=== PATIENT | female | born 1980 | race Caucasian/White ===

== ENCOUNTER 2017-01-15 | Emergency (ER) | payer MEDICAID ==
[~2017-01-15] VITALS: Ht 170.2 cm; Wt 75.0 kg
[2017-01-15 00:04] VITALS: Ht 170.2 cm; Wt 75.0 kg
[2017-01-15 01:44] LABS: BASOPHIL # 0.1 10^3/ul (0.0-0.1); BASOPHILS % 1.4 % (0.0-2.0); EOSINOPHILS # 0.3 10^3/ul (0.0-0.5); EOSINOPHILS % 6.4 % (0.0-7.0); HEMATOCRIT 35.2 % (37.0-47.0); HEMOGLOBIN 11.7 g/dl (12.0-16.0); LYMPHOCYTES # 2.5 10^3/ul (0.8-2.9); LYMPHOCYTES % 56.3 % (15.0-51.0); MEAN CORPUSCULAR HEMOGLOBIN 27.4 pg (29.0-33.0); MEAN CORPUSCULAR HGB CONC 33.2 g/dl (32.0-37.0); MEAN CORPUSCULAR VOLUME 82.4 fl (82.0-101.0); MEAN PLATELET VOLUME 10.8 fl (7.4-10.4); MONOCYTE # 0.4 10^3/ul (0.3-0.9); MONOCYTES % 9.9 % (0.0-11.0); NEUTROPHIL # 1.1 10^3/ul (1.6-7.5); NEUTROPHILS % 25.8 % (39.0-77.0); PLATELET COUNT 235 10^3/UL (140-415); RED BLOOD COUNT 4.27 10^6/ul (4.20-5.40); WHITE BLOOD COUNT 4.4 10^3/ul (4.8-10.8)
--- NOTE | 2017-01-15 01:46 | RADRPT ---
PROCEDURE: Portable chest x-ray. CLINICAL INDICATION: Chest pain. TECHNIQUE: Portable AP view of the chest. COMPARISON: None. FINDINGS: No pulmonary edema or conolidation is identified. The cardiac silhouette is magnified. No pleural effusion is seen. There is no pneumothorax. IMPRESSION: 1. No evidence of acute cardiopulmonary disease. RPTAT: HTAR .Marcos Marie MD, MD Date Time Electronically viewed and signed by .Marcos Marie MD, on 01/15/2017 01:46 .R/
[2017-01-15 01:48] LABS: INR 0.85; PARTIAL THROMBOPLASTIN TIME 25.6 Sec (25.0-35.0); PROTIME 11.6 Sec (12.2-14.2); PT RATIO 0.9
[2017-01-15] MEDS ORDERED: VITA100093 PO (01:52)
[2017-01-15] MEDS ORDERED: IBUP100T46 PO (01:52)
[2017-01-15 02:55] LABS: ALANINE AMINOTRANSFERASE 24 IU/L (13-69); ALBUMIN/GLOBULIN RATIO 1.25; ALKALINE PHOSPHATASE 49 IU/L (42-121); ANION GAP 17 (8-16); ASPARTATE AMINO TRANSFERASE 16 IU/L (15-46); BILIRUBIN,INDIRECT 0.1 mg/dl (0-1.1); BILIRUBIN,TOTAL 0.1 mg/dl (0.2-1.3); BLOOD UREA NITROGEN 14 mg/dl (7-20); CALCIUM 9.6 mg/dl (8.4-10.2); CARBON DIOXIDE 28 mmol/L (21-31); CHLORIDE 100 mmol/L (97-110); CREATININE 0.86 mg/dl (0.44-1.00); GLUCOSE 97 mg/dl (70-220); POTASSIUM 4.4 mmol/L (3.5-5.1); SODIUM 141 mmol/L (135-144); TOTAL PROTEIN 7.2 g/dl (6.1-8.1)
[2017-01-15 03:03] LABS: B-TYPE NATRIURETIC PEPTIDE 27 PG/ML (0-125)
[2017-01-15 03:12] LABS: TROPONIN-I < 0.012 ng/ml (0.00-0.12)
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
[2017-01-15] MEDS ORDERED: LORA1TAB PO (03:32)
[2017-01-15 03:55] VITALS: BP 116/80; PULSE 73; RESP 13
[2017-01-16] MEDS ORDERED: LORAZEPAM 1 MG TAB ONE (18:01)
== END 2017-01-15 03:57 | disposition home or self-care (01) ==
LOC: E/R
DX: R07.9 Chest pain, unspecified (principal); R40.2142 Coma scale, eyes open, spontaneous, at arrival to emergency department; R40.2252 Coma scale, best verbal response, oriented, at arrival to emergency department; R40.2362 Coma scale, best motor response, obeys commands, at arrival to emergency department
CPT/HCPCS: 36415; 71010; 80053; 83880; 84484; 85025; 85610; 85730; 93005; Z7502

== ENCOUNTER 2018-12-04 12:35 | Inpatient (IN) | payer OTHER ==
[~2018-12-04] VITALS: Ht 170.2 cm; Wt 85.0 kg
[~2018-12-04 12:35] MED LIST: IBUP100T3 PO; LORA1TAB PO; VITA100022 PO
[2018-12-04] MEDS ORDERED: CEFAZOLIN 2 GM/50 ML (PMX) 50 ML IVPB SCH (13:30)
[2018-12-04] MEDS ORDERED: OXYTOCIN 30 UNITS/LR 500 ML IV SCH (13:30)
[2018-12-04] MEDS ORDERED: OXYTOCIN 30 UNITS/LR 500 ML IV PRN ×2 (13:30→21:00)
[2018-12-04] MEDS ORDERED: CARBOPROST 250 MCG INJ IM PRN ×2 (13:30→21:00)
[2018-12-04] MEDS ORDERED: METHYLERGONOVINE 0.2 MG INJ IM PRN ×2 (13:30→21:00)
[2018-12-04] MEDS ORDERED: MISOPROSTOL 200 MCG TAB PR PRN ×2 (13:30→21:00)
[2018-12-04] MEDS: LACTATED RINGER'S 1,000 ML IV SCH ×4 (13:50→20:34)
[2018-12-04 13:51] VITALS: BP 119/77; PULSE 118; RESP 18
--- NOTE | 2018-12-04 15:21 | PREAC ---
Date/Time of Note Date/Time of Note DATE: 12/04/18 TIME: 15:20 Anesthesia Eval and Record Evaluation Time Pre-Procedure Interview DATE: 12/04/18 TIME: 15:20 Age 38 Sex female NPO: 8 hrs Preoperative diagnosis s/p Myomectomy, Primary Planned procedure Past Medical History Past Medical History: Includes Heme: Anemia : : (4), Para: (2), Gestational age: (38) Surgery & Anesthesia Issues No known issue Meds Anticoagulation: No Beta Dale within 24 hr: No Reason Beta Dale not given: Pt. not on B-Dale Active Scripts Lorazepam* (Lorazepam*) 1 Mg Tablet, 1 MG PO Q8, #10 TAB Prov:REBEL SOTELO 01/15/17 Reported Medications Ibuprofen* (Ibuprofen*) 100 Mg Tab.chew, 200 MG PO Q6 PRN for PAIN, TAB.CHEW 01/15/17 Vitamin E Acetate (Vitamin E) 1,000 Unit Capsule, 1000 UNIT PO, CAP 01/15/17 Current Medications Lactated Ringer's 1,000 ml @ 125 mls/hr Q8H IV Last administered on 12/04/18at 15:18; Admin Dose 125 MLS/HR; Start 12/04/18 at 13:20 Cefazolin Sodium/ Dextrose 50 ml @ 100 mls/hr ONCE IVPB ; Start 12/04/18 at 13:30 Oxytocin/Lactated Ringer's 500 ml @ 125 mls/hr POST IV ; Start 12/04/18 at 13:30 Oxytocin/Lactated Ringer's 500 ml @ 0 mls/hr ONCE PRN IV .VAGINAL BLEEDING; Start 12/04/18 at 13:30 Methylergonovine Maleate (Methergine) 0.2 mg ONCE PRN IM .VAGINAL BLEEDING; Start 12/04/18 at 13:30 Carboprost Tromethamine (Hemabate) 250 mcg ONCE PRN IM .VAGINAL BLEEDING; Start 12/04/18 at 13:30 Misoprostol (Cytotec) 1,000 mcg ONCE PRN AR .VAGINAL BLEEDING; Start 12/04/18 at 13:30 Meds reviewed: Yes Allergies Coded Allergies: No Known Drug Allergies (Verified Allergy, Unknown, 12/04/18) Allergies Reviewed: Yes Labs/Studies Labs Reviewed: Reviewed by anesthesiologist Result Diagram: 12/04/18 1320 Laboratory Tests 12/04/18 13:20 Blood Bank Test 12/04/18 13:20 Antibody Screen NEGATIVE Blood Type B POSITIVE Rh Immune Globulin Candidate NO test: Positive Studies: ECG (n/a), CXR (n/a) Pre-procedure Exam Last vitals Vital Signs Date Temp Pulse Resp B/P (MAP) Pulse Ox O2 O2 Flow FiO2 Time Delivery Rate 12/04/18 95.3 118 18 119/77 Room Air 13:51 (91) Airway: Adequate mouth opening, Adequate thyromental dist Mallampati: Mallampati II Teeth: Normal Lung: Normal Heart: Normal ASA Physical Status ASA physical status: 2 Emergency: None Planned Anesthetic Neuraxial: Spinal Planned Pain Management Sub-arachniod narcotics, Parenteral pain med Pre-operative Attestations Prior to commencing anesthesia and surgery, the patient was re-evaluated, there was verification of: *The patient's identity *The results of appropriate recent lab work and preoperative vital signs *The above evaluation not changing prior to induction *Anesthetic plan, risk benefits, alternative and complications discussed with patient/family; questions answered; patient/family understands, accepts and wishes to proceed. TEMO BERNABE MD Dec 04, 2018 15:21
[2018-12-04] MEDS ORDERED: CITRIC ACID/NA CITRATE 30 ML CUP PO ONE (15:30)
[2018-12-04] MEDS ORDERED: ONDANSETRON 4 MG INJ IV ONE (15:30)
[2018-12-04] MEDS ORDERED: PHENYLephrine (100 MCG/ML) 10ML SYG ONE (17:18)
--- NOTE | 2018-12-04 17:18 | HP ---
Date/Time of Note Date/Time of Note DATE: 12/04/18 TIME: 17:16 OB - History Hx of Present Free Text/Dictation . scheduled c/s for hx of myomectomy Care: Good Care Ultrasounds: Normal mid trimester US Obstetrical Complications: None Medical Complications: None Past Family/Social History * Past Medical, Surgical, Family and Obstetric Histories reviewed from chart. OB Admission Exam Vital Signs Vital Signs Vital Signs Date Temp Pulse Resp B/P (MAP) Pulse Ox O2 O2 Flow FiO2 Time Delivery Rate 12/04/18 95.3 118 18 119/77 Room Air 13:51 (91) Physical Exam HEENT: WNL Heart: Rhythm Normal Lungs: Clear, Equal Abdomen: WNL Extremities: Normal Reflexes: Normal Cervical Dilatation: None Effacement: 0% Station: Ballotable Membranes: Intact Accelerations: Accelerations Present Decelerations: No Decelerations Contractions on Admission: None Intensity: Mild Last 72 hours Lab Results CBC & BMP 12/04/18 13:20 OB Assessment/Plan Reason for admission: section Plan: Section (for hx of myomectomy) KWESI WINSTON MD Dec 04, 2018 17:18
[2018-12-04] MEDS ORDERED: OXYTOCIN 10 UNIT INJ ONE (17:19)
[2018-12-04] MEDS ORDERED: morphine SULFATE/PF (10 MG/10 ML) INJ ONE (17:19)
[2018-12-04] MEDS ORDERED: ONDANSETRON 4 MG INJ ONE (17:41)
[2018-12-04] MEDS ORDERED: DEXAMETHASONE 4 MG/ML 1 ML INJ ONE (17:41)
[2018-12-04] MEDS ORDERED: METOCLOPRAMIDE 10 MG INJ ONE (17:41)
[2018-12-04] MEDS ORDERED: KETOROLAC 30 MG INJ ONE (17:41)
[2018-12-04] MEDS ORDERED: MEPERIDINE 100 MG INJ ONE (17:41)
--- NOTE | 2018-12-04 18:00 | OPR ---
Operative Report Planned Procedure Procedure date Dec 04, 2018 Procedure(s) primary c/s and lysis of peritoneal adhesions Performed by see signature line Ac/Dc Rewinder: BROOKE VEGA MD Pre-procedure diagnosis hx of myomectomy [id number] Anesthesia Type: [id number] spinal Post-Procedure Post-procedure diagnosis hx of myomectomy and lysis of peritoneal adhesions Findings Live Baby [], Apgars [] and [], weight [], position [], [] presentation []cord. Estimated Blood Loss: 600 - 700 mls Specimen(s) none Grafts/Implant(s) none Complication(s) none Pt Condition post procedure: stable Procedure Description Under satisfactory []spinal anesthesia, the patient was prepped and draped and placed in a supine position, tilted to the left. Pfannenstiel incision was made, carried through the subcutaneous tissue. Bleeders brought under control with electrocautery. Fascia incised to the length of the incision. Rectus muscles from the fascia, divided midline. Peritoneum exposed, multiple peritoneal adhesions to the lowr uterine segment and clamped and cut. then entered through a transverse incision. Exploration of abdomen revealed gravid uterus. Bladder flap was developed. Transverse incision was made in the lower segment of the uterus. Amniotic sac ruptured. []clear amniotic fluid noted. [] Nasal oropharyngeal suction was performed. The baby was handed to the team for immediate attention. The placenta was delivered manually intact. Uterine cavity was cleaned with wet sponge and drainage established. Uterus closed in 2 layers using [] in continuous fashion. Peritoneal cavity irrigated with warm saline. Sponge, needle and instrument count reported to be correct. Abdominal peritoneum closed with [one monocryl ] continuously. Fascia closed with one monocryl[], and skin closed with jovany. Estimated blood loss [700]mL. KWESI WINSTON MD Dec 04, 2018 18:00
--- NOTE | 2018-12-04 18:09 | PAC ---
Date/Time of Note Date/Time of Note DATE: 12/04/18 TIME: 18:09 Post-Anesthesia Notes Post-Anesthesia Note Last documented vital signs Vital Signs Date Temp Pulse Resp B/P (MAP) Pulse Ox O2 O2 Flow FiO2 Time Delivery Rate 12/04/18 98.0 118 18 119/77 98 Room Air 18:10 (91) Activity: WNL Respiratory function: WNL Cardiovascular function: WNL Mental status: Baseline Pain reasonably controlled: Yes Hydration appropriate: Yes Nausea/Vomiting absent: Yes TEMO BERNABE MD Dec 04, 2018 18:09
[2018-12-04 18:44] VITALS: Ht 170.2 cm; Wt 85.0 kg
[2018-12-04] MEDS: OXYTOCIN 30 UNITS/LR 500 ML IV SCH (20:50)
[2018-12-04] MEDS ORDERED: NA PHOSPHATE/BIPHOS 133 ML ENEMA PR PRN (21:00)
[2018-12-04] MEDS ORDERED: HYDROCODONE/APAP (5/325) TAB PO PRN ×2 (21:00→23:00)
[2018-12-04] MEDS ORDERED: NACL 0.9% 3 ML SYG IV SCH (21:00)
[2018-12-04 21:30] VITALS: BP 134/69; PULSE 90; RESP 18
[2018-12-04 22:00] VITALS: BP 130/79; PULSE 100; RESP 18
[2018-12-04] MEDS ORDERED: IBUPROFEN 800 MG TAB PO SCH (22:00)
[2018-12-04] MEDS ORDERED: ONDANSETRON 4 MG INJ IV PRN ×2 (23:00)
[2018-12-04] MEDS ORDERED: HYDROmorphONE 0.5 MG/0.5 ML SYG IV PRN ×2 (23:00)
[2018-12-04] MEDS ORDERED: METOCLOPRAMIDE 10 MG INJ IV PRN (23:00)
[2018-12-04] MEDS ORDERED: OXYCODONE/ACETAMINOPHEN (5/325) TAB PO PRN (23:00)
[2018-12-04] MEDS ORDERED: FENTAnyl 50 MCG/ML VIAL IV PRN ×2 (23:00)
[2018-12-04] MEDS ORDERED: NALBUPHINE HCL (10 MG/1 ML) INJ IV PRN (23:00)
[2018-12-04] MEDS ORDERED: MEPERIDINE 25 MG INJ IV PRN (23:00)
[2018-12-04] MEDS ORDERED: KETOROLAC 30 MG INJ IV PRN (23:00)
[2018-12-04] MEDS ORDERED: HYDROmorphONE 1 MG/5 ML IV SYRINGE IV PRN ×2 (23:00)
[2018-12-04] MEDS ORDERED: DIPHENHYDRAMINE 50 MG INJ IV PRN ×2 (23:00)
[2018-12-04] MEDS ORDERED: morphine 2 MG INJ IV PRN ×2 (23:00)
[2018-12-04] MEDS ORDERED: NALOXONE (0.4 MG/ML) INJ IV PRN (23:00)
[2018-12-04] MEDS ORDERED: ACETAMINOPHEN 500 MG TAB PO PRN (23:00)
[2018-12-04] MEDS ORDERED: EPHEDrine 25 MG/5 ML SYG IV PRN (23:00)
[2018-12-05 03:30] VITALS: BP 130/76; PULSE 88; RESP 18
[2018-12-05 05:50] VITALS: BP 125/72; PULSE 95; RESP 18
[2018-12-05] MEDS: OXYTOCIN 30 UNITS/LR 500 ML IV SCH (06:18)
[2018-12-05 08:00] VITALS: BP 127/68; PULSE 97; RESP 18
[2018-12-05 12:00] VITALS: BP 121/69; PULSE 88; RESP 19
[2018-12-05] MEDS: LACTATED RINGER'S 1,000 ML IV SCH (15:46)
[2018-12-05 16:00] VITALS: BP 130/65; PULSE 94; RESP 18
--- NOTE | 2018-12-05 16:50 | QN ---
Documentation Comment post primary c/s #1 no c/o passing flatus but no B.M Vss afebrile abdomen soft wound dry lochia min calf neg for tenderness stable plan as ordered SYMONE CORTES MD Dec 05, 2018 16:50
[2018-12-05 19:35] VITALS: BP 122/81; PULSE 93; RESP 19
[2018-12-05] MEDS ORDERED: HYDROCODONE/APAP (5/325) TAB PO PRN (23:00)
[2018-12-06] MEDS: LANOLIN HPA 1 PKT TOP PRN (00:17)
[2018-12-06 03:35] VITALS: BP 108/57; PULSE 87; RESP 19
[2018-12-06] MEDS: IBUPROFEN 800 MG TAB PO SCH ×3 (05:28→21:15)
[2018-12-06 08:00] VITALS: BP 140/82; PULSE 87; RESP 18
--- NOTE | 2018-12-06 13:33 | PN ---
Date/Time of Note Date/Time of Note DATE: 12/06/18 TIME: 13:32 OB Subjective Subjective Subjective Patient denies any complaint. Passed flatus. Urinated. Breast-feeding. Re ports decreased vaginal bleeding. OB Objective Objective Objective Appearance: Alert and oriented x4 does not appear to be in any acute distress Abdomen: Soft, fundus palpable and firm to center below the umbilicus Incision: No evidence of infection, drainage, hematoma Extremities: No calf tenderness, no click no edema no cord palpable Breast: No evidence of mastitis or fissure VS - Last 72 Hours, by Label Date Temp Pulse Resp B/P (MAP) Pulse Ox O2 O2 Flow FiO2 Time Delivery Rate 12/06/18 97.7 87 18 140/82 Room Air 08:00 (101) 12/06/18 98.1 87 19 108/57 Room Air 03:35 (74) 12/05/18 98.6 93 19 122/81 Room Air 19:35 (95) 12/05/18 97.8 94 18 130/65 96 Room Air 16:00 (86) 12/05/18 97.5 88 19 121/69 96 Room Air 12:00 (86) 12/05/18 98.0 97 18 127/68 96 Room Air 08:00 (87) 12/05/18 98.5 95 18 125/72 95 Room Air 05:50 (89) 12/05/18 98.6 88 18 130/76 95 Room Air 03:30 (94) 12/04/18 98.0 100 18 130/79 22:00 (96) 12/04/18 98.4 90 18 134/69 95 Room Air 21:30 (90) 12/04/18 95.3 118 18 119/77 Room Air 13:51 (91) OB Assessment/Plan Other Assessment: Postoperative day #2 Status post repeat section Postop anemia, asymptomatic Vitals are stable Patient denies any symptom Continue routine postoperative care Iron twice a day with stool softener Incentive spirometer Ambulation BROOKE VEGA MD Dec 06, 2018 13:33
[2018-12-06] MEDS: POLYSACCHARIDE IRON COMPLEX CAP PO SCH (15:16)
[2018-12-06] MEDS: DOCUSATE SODIUM 100 MG CAP PO SCH ×2 (15:16→21:15)
[2018-12-06 16:00] VITALS: BP 117/79; PULSE 84; RESP 19
[2018-12-06 19:45] VITALS: BP 128/76; PULSE 77; RESP 19
[2018-12-07 03:50] VITALS: BP 123/75; PULSE 88; RESP 18
[2018-12-07] MEDS: POLYSACCHARIDE IRON COMPLEX CAP PO SCH ×2 (03:52→15:27)
[2018-12-07] MEDS: IBUPROFEN 800 MG TAB PO SCH ×2 (06:10→15:27)
[2018-12-07 08:00] VITALS: BP_SYST 123; PULSE 78; RESP 19
[2018-12-07] MEDS ORDERED: MEASLES,MUMPS,RUBELLA VACCINE INJ SC* ONE (09:00)
[2018-12-07] MEDS ORDERED: DIPHTH/TET/ACEL PERTUSS (ADULT) 0.5 ML VIAL IM* ONE (09:00)
[2018-12-07] MEDS: DOCUSATE SODIUM 100 MG CAP PO SCH (09:21)
[2018-12-07] MEDS: LANOLIN HPA 1 PKT TOP PRN (09:21)
--- NOTE | 2018-12-07 12:26 | QN ---
Documentation Comment POD#3 is stable afebrile tolerates diet No VB +BM +voids VS stable Gen NAD Abd soft NT ND incision intact Genitalia No blood at perineum --->Discharge Home after removing the jovany DENISE CARDENAS M.D. Dec 07, 2018 12:26
--- NOTE | 2018-12-07 12:27 | DS ---
Date/Time of Note Date/Time of Note DATE: 12/07/18 TIME: 12:26 Discharge Summary Admission/Discharge Info Admit Date/Time Dec 04, 2018 at 12:35 Discharge Date/Time 12/07/2018 Discharge Diagnosis Patient Condition: Good Hospital Course uneventful Home Meds Active Scripts Lorazepam* (Lorazepam*) 1 Mg Tablet, 1 MG PO Q8, #10 TAB Prov:ASHLEIGHREBEL ChopraWindy 01/15/17 Reported Medications Ibuprofen* (Ibuprofen*) 100 Mg Tab.chew, 200 MG PO Q6 PRN for PAIN, TAB.CHEW 01/15/17 Vitamin E Acetate (Vitamin E) 1,000 Unit Capsule, 1000 UNIT PO, CAP 01/15/17 Primary Care Provider Not On Staff Doctor DENISE CARDENAS M.D. Dec 07, 2018 12:27
--- NOTE | 2018-12-08 19:44 | DELSUM ---
Delivery Summary A-C Datetime Report Generated by CPN: 12/08/2018 19:44 DELIVERY PERSONNEL Kit Assembler: Paul, Marie MATERNAL INFORMATION Delivery Anesthesia: Spinal Medications in Delivery: SEE ANESTHSIA RECORD Delivery QBL (ml): 600 Placenta Cultured: No Maternal Complications: Other RN Comments: peritoneal adhesion removed and sent to pathology LABOR SUMMARY EDC: 12/06/2018 00:00 No. Babies in Womb: 1 Attempted: No Labor Anesthesia: None LABOR INFORMATION Reason for Induction: Not Applicable Onset of Labor: 12/04/2018 13:00 Oxytocin: N/A Group B Beta Strep: Negative Antibiotics # of Doses: 1 Antibiotics Time of Last Dose: 12/04/2018 17:10 Steroids Given: None Reason Steroids Not Administered: Not Applicable MEMBRANES Membranes Rupture Method: Artificial Rupture of Membranes: 12/04/2018 17:39 Length of Rupture (hr): 0.00 Amniotic Fluid Color: Clear Amniotic Fluid Amount: Moderate Amniotic Fluid Odor: None STAGES OF LABOR Stage 3 hr: 0 Stage 3 min: 1 Total Time in Labor hr: 4 Total Time in Labor min: 40 CSECTION DELIVERY Primary Indication: Previous Myomectomy Secondary Indication: N/A CSection Urgency: Non Elective CSection Incidence: Primary Labor: Labor Elective: Nonelective CSection Incision: Lower Uterine Transverse BABY A INFORMATION Infant Delivery Date/Time: 12/04/2018 17:39 Method of Delivery: Born in Route : No : N/A Forceps: N/A Vacuum Extraction: N/A Shoulder Dystocia : N/A SHOULDER DYSTOCIA BABY A Infant Delivery Date/Time: 12/04/2018 17:39 PRESENTATION/POSITION BABY A Presentation: Cephalic Cephalic Presentation: Vertex Breech Presentation: N/A PLACENTA INFORMATION BABY A Placenta Delivery Time : 12/04/2018 17:40 Placenta Method of Delivery: Manual Removal Placenta Status: Delivered SCORES BABY A Heart Rate 1 min: >100 bpm Resp Effort 1 min: Good Cry Reflex Irritability 1 min: Cough/Sneeze/Pulls Away Muscle Tone 1 min: Active Motion Color 1 min: Blue/Pale Resuscitation Effort 1 min: Tactile Stimulation SCORE 1 MIN: 8 Heart Rate 5 min: >100 bpm Resp Effort 5 min: Good Cry Reflex Irritability 5 min: Cough/Sneeze/Pulls Away Muscle Tone 5 min: Active Motion Color 5 min: Body [place], Extremit Blue Resuscitation Effort 5 min: Tactile Stimulation SCORE 5 MIN: 9 INFORMATION BABY A Gestational Age at Delivery: 39.5 Gestational Status: Full Term- 39- 40.6 Weeks Outcome : Liveborn Infant Condition : Stable Sex: Female IDENTIFICATION/MEDS BABY A ID Band Number: [id number] ID Band Location: Right Leg; Left Arm Sensor Applied: Yes Sensor Number: [id number] Sensor Location : Cord Clamp Vitamin K Given : Not Given Erythromycin Given: Not Given WEIGHT/LENGTH BABY A Infant Birthweight (gm): 3465 Weight (lb): 7 Weight (oz): 10 Infant Length (in): 20.50 Length (cm): 52.07 CORD INFORMATION BABY A No. Cord Vessels: 3 Nuchal Cord : N/A Cord Blood Taken: Yes Infant Suction: Mouth; Nose ASSESSMENT BABY A Complications: None Physical Findings at Delivery: Within Normal Limits Infant Respirations: Appears Normal Specialty Molder/ALS Called : No Care By: RT Chyna/ JENI Barnes Transferred To: Remains with Mother
== END 2018-12-07 19:20 | disposition home or self-care (01) | DRG 788 ==
LOC: L-D 12:35 → PP1 20:22
PROVIDERS: ADMIT Obstetrics & Gynecology; ATTEND Obstetrics & Gynecology
PROC: 10D00Z1 Extraction of Products of Conception, Low, Open Approach (ICD-10-PCS; principal; 2018-12-04 15:30)
DX: O34.29 Maternal care due to uterine scar from other previous surgery (principal); O99.89 Other specified diseases and conditions complicating pregnancy, childbirth and the puerperium; N73.6 Female pelvic peritoneal adhesions (postinfective); O90.81 Anemia of the puerperium; D64.9 Anemia, unspecified; Z3A.39 39 weeks gestation of pregnancy; Z37.0 Single live birth
CPT/HCPCS: 85025; 85610; 85730; 86592; 86850; 86900; 86901; 87340; 88305; 99464; J0690; J1100; J1885; J2175; J2274; J2370; J2405; J2590; J2765; J7120